=== PATIENT | male | born 1985 | race African-American/Black ===

== ENCOUNTER 2018-10-05 05:20 | Day surgery (SDC) | payer OTHER ==
[~2018-10-05] VITALS: Ht 182.9 cm; Wt 59.4 kg
[2018-10-05] MEDS ORDERED: BACLOFEN20 M1 PO (06:23)
[2018-10-05] MEDS ORDERED: ALBUTEROL SULF8.5 GM (06:24)
[2018-10-05] MEDS ORDERED: OXYBUTYNIN CHLOR5 MG PO (06:24)
[2018-10-05] MEDS ORDERED: FLOMAX0.4 MG (06:25)
[2018-10-05] MEDS ORDERED: ULTRAM50 MG PO (06:25)
[2018-10-05] MEDS ORDERED: CLEOCIN HCL75 MG PO (06:28)
[2018-10-05 06:29] VITALS: BP 114/56; Ht 182.9 cm; Wt 59.4 kg
[2018-10-05 07:29] LABS: BASOPHILS 0.1 % (0-2); HEMATOCRIT 39.5 % (42.0-54.0); HEMOGLOBIN 12.6 g/dL (13.5-17.5); IMMATURE GRANULOCYTES 0.4 % (0-5); LYMPHOCYTES 28.9 % (15-50); MCH 21.4 pg (26.0-34.0); MCHC 31.9 g/dL (31.0-37.0); MCV 67.1 fL (80.0-100.0); MONOCYTES 9.2 % (2-11); NEUTROPHILS 58.4 % (40-80); PLATELET COUNT 289 10x3/uL (130-400); RBC 5.89 10x6/uL (4.20-6.10); RDW 16.9 % (11.5-14.5); WBC 7.3 10x3/uL (4.8-10.8)
--- NOTE | 2018-10-05 09:29 | NUR ---
DR MASTERSON AT BEDSIDE FOR EVAL OF WOUND VAC TO RT HIP
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
== END 2018-10-05 10:55 | disposition home or self-care (01) ==
LOC: D.OPS 05:20
PROVIDERS: Anesthesiology
DX: N32.89 Other specified disorders of bladder (principal); Z89.611 Acquired absence of right leg above knee; G82.20 Paraplegia, unspecified; T14.8XXS Other injury of unspecified body region, sequela; Z01.812 Encounter for preprocedural laboratory examination

== ENCOUNTER → 2019-08-26 15:45 | Outpatient (CLI) | payer OTHER ==
[2018-10-05 06:29] VITALS: BMI 17.8
[~2019-08-26 15:45] MED LIST: ALBUTEROL SULF8.5 GM; BACLOFEN20 M1 PO; CLEOCIN HCL75 MG PO; FLOMAX0.4 MG; OXYBUTYNIN CHLOR5 MG PO; ULTRAM50 MG PO
== END | disposition home or self-care (01) ==
LOC: D.LABREF 15:45
PROVIDERS: ATTEND Urology
DX: N39.0 Urinary tract infection, site not specified (principal); R33.9 Retention of urine, unspecified